=== PATIENT | female | born 1960 | race Caucasian/White ===

== ENCOUNTER 2016-12-07 10:48 | Emergency (ER) | payer BC ==
[2016-12-07] MEDS ORDERED: HYDROMORPHONE HCL 1 MG/ML CPJ IM ONE (12:02)
[2016-12-07] MEDS ORDERED: ONDANSETRON HCL IV 4 MG/2 ML VIAL IM ONE (12:02)
--- NOTE | 2016-12-07 12:58 | Emergency Department Record ---
History of Present Illness - General Chief complaint: Extremity Problem Stated complaint: RT WRIST PAIN Time Seen by Provider: 12/07/16 12:01 Source: Patient Mode of Arrival: Ambulatory Limitations: No limitations - History of Present Illness Initial comments: pt fell out of truck bed injuring r wrist and arm. no loc MD Complaint: Extremity pain, Extremity swelling Onset/Timin -: Minutes(s) Location: Right, Hand History of Same: No Severity scale (1-10): 7 Quality: Aching, Sharp Consistency: Constant Improves with: Nothing Worsens with: Palpation, Weight bearing Associated Symptoms: Denies other symptoms - Related Data Home Medications Medication Instructions Recorded Confirmed Last Taken No Home Med [NO HOME MEDS] 12/07/16 12/07/16 Unknown Allergies Allergy/AdvReac Type Severity Reaction Status Date / Time No Known Drug Allergies Allergy Verified 12/07/16 10:59 Travel Screening - Travel/Exposure Within Last 30 Days Have you traveled within the last 30 days?: No Review of Systems Reviewed: No additional complaints except as noted below Constitutional: Reports: As per HPI. Denies: Chills, Fever, Malaise, Night sweats, Weakness, Weight change Eyes: Reports: As per HPI. Denies: Eye discharge, Eye pain, Photophobia, Vision change ENT: Reports: As per HPI. Denies: Congestion, Dental pain, Ear pain, Epistaxis , Hearing loss, Throat pain Respiratory: Reports: As per HPI. Denies: Cough, Dyspnea, Hemoptysis, Stridor, Wheezes Cardiovascular: Reports: As per HPI. Denies: Arrhythmia, Chest pain, Dyspnea on exertion, Edema, Murmurs, Orthopnea, Palpitations, Paroxysmal nocturnal dyspnea, Rheumatic Fever, Syncope Endocrine: Reports: As per HPI. Denies: Fatigue, Heat or cold intolerance, Polydipsia, Polyuria Gastrointestinal: Reports: As per HPI. Denies: Abdominal pain, Constipation, Diarrhea, Hematemesis, Hematochezia, Melena, Nausea, Vomiting Genitourinary: Reports: As per HPI. Denies: Abnormal menses, Discharge, Dyspareunia, Dysuria, Frequency, Hematuria, Incontinence, Retention, Urgency Musculoskeletal: Reports: As per HPI. Denies: Arthralgia, Back pain, Gout, Joint swelling, Myalgia, Neck pain Skin: Reports: As per HPI. Denies: Bruising, Change in color, Change in hair/ nails, Lesions, Pruritus, Rash Neurological: Reports: As per HPI. Denies: Abnormal gait, Confusion, Headache, Numbness, Paresthesias, Seizure, Tingling, Tremors, Vertigo, Weakness Psychiatric: Reports: As per HPI. Denies: Anxiety, Auditory hallucinations, Depression, Homicidal thoughts, Suicidal thoughts, Visual hallucinations Hematological/Lymphatic: Reports: As per HPI. Denies: Anemia, Blood Clots, Easy bleeding, Easy bruising, Swollen glands Past Medical History - SOCIAL HISTORY Smoking Status: Never smoker Alcohol Use: None Drug Use: None - RESPIRATORY Hx Respiratory Disorders: No - CARDIOVASCULAR Hx Cardio Disorders: No - NEURO Hx Neuro Disorders: No - GI Hx GI Disorders: No - Hx Genitourinary Disorders: No - ENDOCRINE Hx Endocrine Disorders: No - MUSCULOSKELETAL Hx Musculoskeletal Disorders: No - PSYCH Hx Psych Problems: No - HEMATOLOGY/ONCOLOGY Hx Hematology/Oncology Disorders: No Family Medical History Any Significant Family History?: No Physical Exam - General General Appearance: Alert, Oriented x3, Cooperative, Mild distress - Head Head exam: Normal inspection - Eye Eye exam: Normal appearance, PERRL, EOMI Pupils: Normal accommodation - ENT ENT exam: Normal exam, Mucous membranes moist, Normal external ear exam, Normal orophraynx Ear exam: Normal external inspection. negative: External canal tenderness Nasal Exam: Normal inspection. negative: Discharge, Sinus tenderness Mouth exam: Normal external inspection, Tongue normal Teeth exam: Normal inspection. negative: Dental caries Throat exam: Normal inspection. negative: Tonsillar erythema, Tonsillar exudate - Neck Neck exam: Normal inspection, Full ROM. negative: Tenderness - Respiratory Respiratory exam: Normal lung sounds bilaterally. negative: Respiratory distress - Cardiovascular Cardiovascular Exam: Regular rate, Normal rhythm, Normal heart sounds - GI/Abdominal GI/Abdominal exam: Soft, Normal bowel sounds. negative: Tenderness - Rectal Rectal exam: Deferred - exam: Deferred - Extremities Extremities exam: Normal capillary refill, Tenderness. negative: Normal inspection, Full ROM Image of Full Body: 1 - bony deformity, ecchymosis, swelling 2 - ecchymosis, swelling - Back Back exam: Reports: Normal inspection, Full ROM. Denies: Muscle spasm, Rash noted, Tenderness - Neurological Neurological exam: Alert, CN II-XII intact, Normal gait, Oriented X3 - Psychiatric Psychiatric exam: Normal affect, Normal mood - Skin Skin exam: Dry, Intact, Normal color, Warm Course - Reevaluation(s) Reevaluation #1: 12/07/16 13:53 d/w dr lawson who accepted pt Reevaluation #2: 12/07/16 14:05 d/w dr orlando Medical Decision Making - Management Options MDM Management: Additional Work-up Planned (e.g. ADM/Transfer/OP Study) - Data Complexity MDM Data: X-Ray Ordered and/or Reviewed - Radiology Data Radiology results: Report reviewed, Image reviewed Disposition Disposition: Transfer Clinical Impression: Radial fracture Qualifiers: Encounter type: initial encounter Radius location: distal Fracture type: closed Fracture morphology: other intra-articular Laterality: right Qualified Code(s): S52.571A - Other intraarticular fracture of lower end of right radius, initial encounter for closed fracture Disposition: Acute Care Hospital Transfer Transfer To: [facility] Reason For Transfer: displaced radial fracture Accepting Physician: natalie lawson and darion Time Discussed w/Accepting Physician: 13:30 Forms: Patient Portal Access
[2016-12-07] MEDS ORDERED: HYDROMORPHONE HCL 1 MG/ML CPJ IVP ONE (14:04)
--- NOTE | 2016-12-10 09:13 | RADIOLOGY REPORT ---
EXAM: RIGHT WRIST, THREE VIEWS HISTORY: PAIN AND DEFORMITY POST FALL. TECHNIQUE: AP, oblique, and lateral views of the right wrist were obtained. Comparison: None. Encounter: Initial. FINDINGS: There is normal bone mineralization. There is evidence of an acute transverse fracture of the distal radial metaphysis with mild apex anterior angulation of the main fracture fragments and minimal posterior proximal displacement of the distal fracture fragment by 3 mm. An intraarticular component would be difficult to exclude. No other fractures are seen nor is there dislocation. There is soft tissue swelling about the wrist most pronounced at the level of the fracture site. IMPRESSION: MILDLY DISPLACED AND ANGULATED FRACTURE OF THE DISTAL RADIAL METAPHYSIS WITH ASSOCIATED SOFT TISSUE SWELLING. AN INTRAARTICULAR COMPONENT WOULD BE DIFFICULT TO EXCLUDE. JOB NUMBER: [id number] MTDD
--- NOTE | 2016-12-10 09:18 | RADIOLOGY REPORT ---
EXAM: RIGHT ELBOW, THREE VIEWS HISTORY: PAIN AND BRUISING POST FALL. TECHNIQUE: AP, oblique and lateral views of the right elbow were obtained. Positioning was limited due to patient condition. Comparison: None. Encounter: Initial. FINDINGS: There is normal bone mineralization. No convincing acute fracture, dislocation, or destructive bone lesion is seen. There is borderline anterior fat pad sign. No posterior fat pad sign is seen. There is mild dorsal soft tissue swelling at the level of the proximal forearm. IMPRESSION: 1. NO CONVINCING ACUTE FRACTURE NOR DISLOCATION. NO DEFINITE POSTERIOR FAT PAD SIGN. 2. DORSAL SOFT TISSUE SWELLING. JOB NUMBER: [id number] MTDD
--- NOTE | 2016-12-10 09:26 | CT SCAN REPORT ---
EXAM: CT OF THE RIGHT WRIST WITHOUT CONTRAST HISTORY: DISTAL RADIUS FRACTURE. TECHNIQUE: Thin collimation helical CT examination of the right upper extremity was performed from the mid forearm level through the MCP joint level without intravenous contrast. Coronal and sagittal reformatted images were generated and reviewed. Comparison: Same day radiographic examination of the right wrist. FINDINGS: As demonstrated on the radiographic examination of the right wrist, there is a comminuted impaction type fracture of the distal radius with the main fracture line transversely oriented. There is apex anterior angulation of the main fracture fragments measuring approximately 50 degrees. There is approximately 4 mm of posterior displacement of the lateral aspect of the distal fracture fragment. There is an oblique coronal component involving the distal radial epiphysis which extends to the posterior distal margin though does not convincingly involve the articular surface. There is associated soft tissue swelling/deformity. Tiny calcific densities project near the dorsal margin of the base of the ulnar styloid with tiny avulsion fracture fragments not excluded. IMPRESSION: COMMINUTED, ANGULATED AND MILDLY DISPLACED FRACTURE OF THE DISTAL RADIUS WITHOUT CONVINCING INTRAARTICULAR EXTENSION. THERE IS ASSOCIATED SOFT TISSUE SWELLING. TINY CALCIFIC DENSITIES DEMONSTRATED NEAR THE DORSAL MARGIN OF THE ULNAR STYLOID WITH TINY AVULSION FRAGMENTS NOT EXCLUDED. JOB NUMBER: [id number] MTDD
== END 2016-12-07 14:30 | disposition short-term general hospital (02) ==
LOC: ER 10:48
DX: S52.571A Other intraarticular fracture of lower end of right radius, initial encounter for closed fracture (principal); W17.89XA Other fall from one level to another, initial encounter
CPT/HCPCS: 29515; 99285 ×2; 96374; 96372; 73080; 73110; 73200; J2405; J1170